=== PATIENT | female | born 1970 | race Caucasian/White ===

== ENCOUNTER 2024-07-13 17:25 | Emergency (ER) | payer OTHER ==
[~2024-07-13] VITALS: Ht 170.2 cm; Wt 90.7 kg
[~2024-07-13 17:25] MED LIST: CEPH500 PO; HYDACE5 PO; HYDR1TAB94 PO; Inderal40 MG PO; LEVSOD137 PO; NAPR550 PO; PROM25 PO; RXNAPNA550 PO; Roxicodone5 MG PO; Zofran Odt4 MG SL; [UNRECOGNIZED DRUG - OTHER]; nortriptyline; phentermine
[2024-07-13 17:33] VITALS: BP 176/101
[2024-07-13] MEDS ORDERED: Acetaminophen 325 MG TABLET PO ONE (17:40)
[2024-07-13] MEDS ORDERED: OxyCODONE 7.5 mg/Acetam 325 mg TABLET PO ONE (18:10)
[2024-07-13] MEDS ORDERED: Ondansetron 4 MG SoluTab SL ONE (18:10)
[2024-07-13] MEDS ORDERED: RX Prepack 6 Tabs Oxycodone 5mg UD ONE (18:45)
[2024-07-13] MEDS ORDERED: OXYACE7.5T PO (18:47)
== END 2024-07-13 19:10 | disposition home or self-care (01) ==
LOC: ER 17:25
DX: S82.61XA Displaced fracture of lateral malleolus of right fibula, initial encounter for closed fracture (principal); E03.9 Hypothyroidism, unspecified; G43.909 Migraine, unspecified, not intractable, without status migrainosus; Z79.890 Hormone replacement therapy; Z79.899 Other long term (current) drug therapy; W01.198A Fall on same level from slipping, tripping and stumbling with subsequent striking against other object, initial encounter
CPT/HCPCS: 29515; 73610; 99283-25; A9270

== ENCOUNTER 2025-03-11 07:37 | Day surgery (SDC) | payer OTHER ==
[~2025-03-11] VITALS: Ht 170.2 cm; Wt 89.6 kg
[2025-03-11] VITALS (16 sets, daily range): BP systolic 100–141; BP diastolic 66–93
[~2025-03-11 07:37] MED LIST changes: +CELE100 PO; +CLOBETASOL EMOL15 G1; +CYMBALTA30 M2 PO; +Cyclobenzaprine5 MG PO; +ESTRADIOL (TWI1 EACH TOP; +EUTHYROX175 MC1 PO; +FURO40 PO; +FUROSEMIDE40 MG PO; +IMITREX100 MG PO; +KLOR-CON 1010 ME9 PO; +NYSTOP15 GM TOP; +OXYACE7.5T PO; +PREGABALIN75 MG PO
[2025-03-11] MEDS ORDERED: NORT10 PO (08:06)
[2025-03-11] MEDS ORDERED: Inderal40 MG PO (08:08)
--- NOTE | 2025-03-11 08:53 | NUR ---
03/11/25 0853 Milly Marie CONFIRMED AND REVIEWED H&P, MEDCICATIONS, ALLERGIES, MEDICAL HISTORY, RESPIRATORY HISTORY, VITAL SIGNS, 3-LEAD EKG, CONSENTS, AND PHYSICIAN ORDERS. PATIENT CONFIRMS NPO STATUS AND AGREES WITH SCHEDULED PROCEDURE. MONITOR INTACT WITH CONTINUOUS PULSE OXIMETRY, CAPNOGRAPHY, 3-LEAD EKG, INTERMITTENT BP. SUPPLEMENTAL O2 TO BE TITRATED THROUGHOUT PROCEDURE TO MAINTAIN O2 SATURATION ABOVE 90%. PATIENT DETERMINED TO BE ASA APPROPRIATE FOR PROPOFOL SEDATION PRIOR TO START OF PROCEDURE BY DR. MENJIVAR. MALLAMPATI CLASS 2 AIRWAY: COMPLETE VISUALIZATION OF THE UVUL[facility].
--- NOTE | 2025-03-11 09:38 | NUR ---
Patient up to Ambulate independently. Gait steady. Pre-Op teaching done. Pt verbalizes understanding. History, Chart, Medications and Allergies reviewed before start of procedure.Patient States Post-Procedure ride home has been arranged.
== END 2025-03-11 09:38 | disposition home or self-care (01) ==
LOC: ORSCMMR 07:37 → ORD 08:30 → ORSCMMR 09:38
PROVIDERS: Internal Medicine Gastroenterology
PROC: 0DJD8ZZ Inspection of Lower Intestinal Tract, Via Natural or Artificial Opening Endoscopic (ICD-10-PCS; principal; 2025-03-11 08:30)
DX: Z12.11 Encounter for screening for malignant neoplasm of colon (principal); R19.5 Other fecal abnormalities; Z98.84 Bariatric surgery status; E03.9 Hypothyroidism, unspecified; I10 Essential (primary) hypertension; Z79.899 Other long term (current) drug therapy
CPT/HCPCS: J2704; J7120

== ENCOUNTER → 2025-06-12 | Outpatient (CLI) | payer OTHER ==
[~2025-06-12] MED LIST changes: +NORT10 PO
[2025-06-12 12:29] LABS: Thyroid Stimulating Hormone 2.908 uIU/mL (0.360-4.800)
== END | disposition home or self-care (01) ==
LOC: LAB SHORT 11:21 → LAB 11:21
PROVIDERS: Internal Medicine Endocrinology, Diabetes & Metabolism
DX: E03.8 Other specified hypothyroidism (principal)
CPT/HCPCS: 36415; 84439; 84443